=== PATIENT | female | born 1990 | race Caucasian/White ===

== ENCOUNTER 2016-09-29 14:42 | Emergency (ER) | payer OTHER, MEDICAID ==
[~2016-09-29] VITALS: Ht 162.6 cm; Wt 54.4 kg
[~2016-09-29 14:42] MED LIST: BENTYL10 MG ORAL; CIPROFLOXACIN500 M2 ORAL; METROGEL-VAGINA70 G1 VAGIN; NKM; ZANTAC150 MG ORAL; ZOFRAN ODT4 MG ORAL
[2016-09-29 17:20] LABS: APPEARANCE,URINE CLEAR; KETONES,URINE NEGATIVE (NEGATIVE); LEUKOCYTE ESTERASE ,URINE 1+ (NEGATIVE); NITRITE,URINE NEGATIVE (NEGATIVE); PH,URINE 6.5 (4.5-8.0); PROTEIN,URINE NEGATIVE (NEGATIVE); UROBILINOGEN,URINE NORMAL MG/DL (0.0-1.0)
[2016-09-29 17:28] LABS: RBC,URINE 0-2 /HPF (0 - 2); SQUAMOUS EPITHELIAL CELL,UR OCCASIONAL /LPF (NONE/OCC); WBC,URINE 0 /HPF (0 - 2)
[2016-09-29 18:57] VITALS: BP 120/85
[2016-09-29] MEDS ORDERED: LORazepam 0.5mg tab ORAL ONE (19:00)
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
--- NOTE | 2016-09-30 13:21 | Diagnostic Imaging Report ---
Indication: PAIN Technique: One view of the pelvis Comparison: None Findings: No acute fractures. No dislocations. Joint spaces are preserved Impression: Negative
== END 2016-09-29 18:57 | disposition home or self-care (01) ==
LOC: EMR 15:45
DX: Z04.8 Encounter for examination and observation for other specified reasons (principal); F20.9 Schizophrenia, unspecified; F43.10 Post-traumatic stress disorder, unspecified
CPT/HCPCS: 72170; 81003; 81025; 99283

== ENCOUNTER 2017-08-11 13:06 | Emergency (ER) | payer MEDICAID, OTHER ==
[~2017-08-11] VITALS: Ht 165.1 cm; Wt 49.9 kg
[2017-08-11 13:30] VITALS: BP 102/74
--- NOTE | 2017-08-11 14:26 | Emergency Room Report ---
History of Present Illness General Chief Complaint: General Complaint Source: Patient Present Illness Allergies: Coded Allergies: NO KNOWN ALLERGIES (Unverified Allergy, Unknown, 07/13/15) Patient History Last Menstrual Period: 08/06/17. Now: No Nursing Documentation-PMH Hx Seizures: Yes Physical Exam Vital Signs Date Time Temp Pulse Resp B/P (MAP) Pulse Ox O2 Delivery O2 Flow Rate FiO2 08/11/17 13:19 98.1 102 21 102/74 96 Room Air Medical Decision Making PA Attestation Dr. mcdaniels is my supervising Physician whom patient management has been discussed with. Diagnostic Impression: Primary Impression: Bacterial vaginosis Additional Impressions: Head lice Hemorrhoids Qualified Codes: K64.9 - Unspecified hemorrhoids Last Vital Signs Date Time Temp Pulse Resp B/P (MAP) Pulse Ox O2 Delivery O2 Flow Rate FiO2 08/11/17 13:19 98.1 102 21 102/74 96 Room Air Disposition: HOME, SELF-CARE Condition: Stable Patient Instructions: Bacterial Vaginosis, Bhot-[id number], Lice, Adult Additional Instructions: Take medications as directed. Follow up with a Primary Care Provider in 3-5 days, even if your symptoms have resolved. --Please review list of primary care clinics, if you do not already have a primary care provider Return sooner to ED if new symptoms occur, or current symptoms become worse. ! Do not drink alcohol while taking Flagyl/Metronidazole as this will cause a skin reaction. - Please note that this Emergency Department Report was dictated using [employer] assistant technology software, occasionally this can lead to erroneous entry secondary to interpretation by the dictation equipment. Yessenia Giron Aug 11, 2017 14:26
[2017-08-11 15:04] LABS: APPEARANCE,URINE CLEAR; KETONES,URINE 1+ (NEGATIVE); LEUKOCYTE ESTERASE ,URINE 2+ (NEGATIVE); NITRITE,URINE NEGATIVE (NEGATIVE); PH,URINE 6 (4.5-8.0); PROTEIN,URINE 2+ (NEGATIVE); UROBILINOGEN,URINE 4 MG/DL (0.0-1.0)
[2017-08-11 15:20] LABS: BACTERIA,URINE FEW /HPF; MUCUS,URINE FEW /LPF (NONE/OCC); SQUAMOUS EPITHELIAL CELL,UR FEW /LPF (NONE/OCC)
[2017-08-11 15:26] LABS: ICTOTEST NEGATIVE
[2017-08-11] MEDS ORDERED: NIX COMPLET324.86 ML MC (15:31)
[2017-08-11] MEDS ORDERED: ANUSOL-HC30 GM RC (15:31)
[2017-08-11] MEDS ORDERED: METRONIDAZOLE500 MG ORAL (15:31)
[2017-08-11 15:48] VITALS: BP 108/66
== END 2017-08-11 15:50 | disposition home or self-care (01) ==
LOC: EMR 14:25
DX: N76.0 Acute vaginitis (principal); B85.0 Pediculosis due to Pediculus humanus capitis; K64.9 Unspecified hemorrhoids
CPT/HCPCS: 80307; 81003; 81025; 99284

== ENCOUNTER 2018-01-02 07:53 | Emergency (ER) | payer MEDICAID ==
[~2018-01-02] VITALS: Ht 162.6 cm; Wt 49.9 kg
[~2018-01-02 07:53] MED LIST changes: +ANUSOL-HC30 GM RC; +METRONIDAZOLE500 MG ORAL; +NIX COMPLET324.86 ML MC
[2018-01-02 08:08] VITALS: BP 111/61
[2018-01-02] MEDS ORDERED: ZOFRAN4 M1 ORAL (08:50)
[2018-01-02] MEDS ORDERED: METROGEL-VAGINA70 G1 VAGIN (08:50)
[2018-01-02] MEDS ORDERED: GENTAMICIN SUL3.5 GM OP (08:50)
--- NOTE | 2018-01-02 08:53 | Emergency Room Report ---
History of Present Illness General Chief Complaint: Female Urogenital Problems Source: Patient Present Illness HPI Patient presents with several different complaints Initial complaint was redness to the left lower eyelid Patient reports that that has been there for several days [place] some increased irritation Patient also reported that she was having vaginal discharge foul smelling Denies being sexually active Denies any pelvic pain Denies any chest pain or shortness of breath denies any rash However she also reported having some epigastric discomfort and nausea Denies any vomiting and eyes any lower abdominal pain Allergies: Coded Allergies: NO KNOWN ALLERGIES (Unverified Allergy, Unknown, 07/13/15) Patient History Past Medical History: see triage record Pertinent Family History: none Last Menstrual Period: 12/17/17 Now: No Reviewed Nursing Documentation: PMH: Agreed; PSxH: Agreed Nursing Documentation-PMH Past Medical History: No History, Except For Hx Seizures: Yes Review of Systems All Other Systems: negative except mentioned in HPI Physical Exam Vital Signs Date Time Temp Pulse Resp B/P (MAP) Pulse Ox O2 Delivery O2 Flow Rate FiO2 01/02/18 07:59 99.3 80 18 101/58 95 Room Air 99.3 Sp02 EP Interpretation: reviewed, normal General Appearance: well appearing, no apparent distress Head: normocephalic, atraumatic Eyes: left eye other - Stye noted in the left lower eyelid medially; bilateral eye PERRL, bilateral eye EOMI ENT: hearing grossly normal, normal pharynx, TMs + canals normal, uvula midline Neck: full range of motion, supple, no meningismus, no bony tend Respiratory: lungs clear, normal breath sounds, no rhonchi, no respiratory distress, no retraction, no accessory muscle use Cardiovascular #1: normal peripheral pulses, regular rate, rhythm, no edema, no gallop, no JVD, no murmur Gastrointestinal: normal bowel sounds, non tender, soft, no mass, no organomegaly, non-distended, no guarding, no hernia, no pulsatile mass, no rebound Genitourinary: no CVA tenderness, other - Patient does not want to have pelvic exam Musculoskeletal: normal inspection Neurologic: oriented x3, responsive, offensive coordinator III-XII nml as tested, motor strength/ tone normal, sensory intact Psychiatric: mood/affect normal Skin: normal color, no rash, warm/dry, palpation normal Lymphatic: normal inspection, no adenopathy Medical Decision Making Diagnostic Impression: Primary Impression: sty Additional Impression: vaginosis ER Course Multiple differentials are considered Patient's eye exam shows findings consistent with sty patient's mid abdominal discomfort is fairly vague soft abdomen is noted on the exam patient's vaginal discharge is treated symptomatically And patient reports that she has close gynecology outpatient follow-up given the lack of any sexual activity further antibiotic coverage was not provided Patient did have a negative test Labs Test 01/02/18 08:10 Urine HCG, Qualitative Negative (NEGATIVE) Last Vital Signs Date Time Temp Pulse Resp B/P (MAP) Pulse Ox O2 Delivery O2 Flow Rate FiO2 01/02/18 08:08 99.1 78 18 111/61 98 Room Air 99.1 Status: unchanged Disposition: HOME, SELF-CARE Condition: Stable Scripts Gentamicin Sulfate* (GENTAMICIN SULFATE*) 3.5 Gm Oint...g. 1 INCH OP BID for 7 Days, GM Prov: Anatoliy Kirkpatrick DO 01/02/18 Ondansetron (Zofran) 4 Mg Tablet 4 MG ORAL Q6H PRN for Nausea & Vomiting, #10 TAB Prov: Anatoliy Kirkpatrick DO 01/02/18 Metronidazole* (METROGEL-VAGINAL*) 70 Gm Gel.w.appl 1 APPL VAGIN EVERY 12 HOURS for 7 Days, #70 GM Prov: Anatoliy Kirkpatrick DO 01/02/18 Referrals: [facility]ERR[facility] (PCP) Patient Instructions: Mely, Vaginitis Additional Instructions: Patient is provided with the discharge instructions notified to follow up with primary doctor in the next 2-3 days otherwise return to the er with any worsening symptoms. Please note that this report is being documented using Net[employer] technology. This can lead to erroneous entry secondary to incorrect interpretation by the dictating instrument. Anatoliy Kirkpatrick DO January 02, 2018 08:53
[2018-01-02 08:59] VITALS: BP 111/61
== END 2018-01-02 08:59 | disposition home or self-care (01) ==
LOC: EMR 08:14
DX: H00.025 Hordeolum internum left lower eyelid (principal); N76.0 Acute vaginitis
CPT/HCPCS: 81025; 99284

== ENCOUNTER 2018-12-26 03:52 | Emergency (ER) | payer MEDICAID ==
[~2018-12-26] VITALS: Ht 162.6 cm; Wt 45.8 kg
[~2018-12-26 03:52] MED LIST changes: +GENTAMICIN SUL3.5 GM OP; +ZOFRAN4 M1 ORAL
[2018-12-26] MEDS ORDERED: GEODON60 MG PO (03:59)
[2018-12-26 04:20] VITALS: BP 104/86
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
[2018-12-26 04:32] LABS: BASOPHILS % (AUTO) 1.5 % (0.0-2.0); EOSINOPHILS % (AUTO) 4.5 % (0.0-3.0); HEMATOCRIT 41.7 % (37.0-47.0); HEMOGLOBIN 14.2 G/DL (12.0-16.0); LYMPHOCYTES % (AUTO) 34.8 % (20.0-45.0); MEAN CORPUSCULAR VOLUME 88 FL (80-99); MONOCYTES % (AUTO) 10.5 % (1.0-10.0); NEUTROPHILS % (AUTO) 48.8 % (45.0-75.0); PLATELET COUNT 209 K/UL (150-450); RED BLOOD COUNT 4.72 M/UL (4.20-5.40); RED CELL DISTRIBUTION WIDTH 10.9 % (11.6-14.8); WHITE BLOOD COUNT 6.9 K/UL (4.8-10.8)
[2018-12-26 04:33] LABS: APPEARANCE,URINE CLEAR; BILIRUBIN, URINE NEGATIVE (NEGATIVE); COLOR,URINE YELLOW; GLUCOSE, URINE (UA) NEGATIVE (NEGATIVE); KETONES,URINE 1+ (NEGATIVE); LEUKOCYTE ESTERASE ,URINE 1+ (NEGATIVE); NITRITE,URINE NEGATIVE (NEGATIVE); PH,URINE 6 (4.5-8.0); PROTEIN,URINE NEGATIVE (NEGATIVE); UROBILINOGEN,URINE 1 MG/DL (0.0-1.0)
[2018-12-26 04:44] LABS: ANION GAP 8 mmol/L (5-15); BLOOD UREA NITROGEN 4 mg/dL (7-18); CALCIUM 8.7 MG/DL (8.5-10.1); CARBON DIOXIDE 26 MMOL/L (21-32); CHLORIDE 107 MMOL/L (98-107); CREATININE 0.7 MG/DL (0.55-1.30); POTASSIUM 3.7 MMOL/L (3.5-5.1); SODIUM 141 MMOL/L (136-145)
[2018-12-26 04:48] LABS: ALANINE AMINOTRANSFERASE 22 U/L (12-78); ALBUMIN 3.7 G/DL (3.4-5.0); ALBUMIN/GLOBULIN RATIO 1.1 (1.0-2.7); ALKALINE PHOSPHATASE 65 U/L (46-116); ASPARTATE AMINO TRANSFERASE 16 U/L (15-37); BILIRUBIN,TOTAL 0.4 MG/DL (0.2-1.0)
--- NOTE | 2018-12-26 05:00 | NUR ---
ER Nurse Note: Pt belongings list competed. Pt refused male RN to take belongings to locker. Pt is in a hospital gown. Will try to put belongings in locker. Juice and sandwich given. All safety measures met; will continue to [facility].
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
--- NOTE | 2018-12-26 07:13 | NUR ---
ER Nurse Note: Report given to TONI Molina for continuity of care. Pt a&ox4, VSS, no signs of distress.
--- NOTE | 2018-12-26 07:15 | NUR ---
ED Nurse Note: Received patient in bed from Ketty Regalado RN. Patient is stable in bed, eating breakfast. Mother, Cornelia Rojas was called at [phone] Mother is ok for the patient to go back home, mother will call back when she can come to pick her up. Dr. Gipson notified.
[2018-12-26 07:39] VITALS: BP 103/89
[2018-12-26] MEDS ORDERED: GEODON80 MG PO (09:36)
--- NOTE | 2018-12-26 09:38 | NUR ---
ED Nurse Note: called Concepcionchadd Mckeon and verified GEODON dosage with [facility], per pharmacist, she takes GEODON 80mg BID. notified Dr. Gipson.
[2018-12-26 09:40] VITALS: BP 103/89
--- NOTE | 2018-12-26 09:41 | NUR ---
ER DISCHARGE NOTE: Patient is cleared to be discharged per ERMD, pt is aox4, on room air, with stable vital signs. pt was given dc and prescription instructions, pt was able to verbalize understanding, pt id band and iv site was removed during prior shift without complications. pt is able to ambulate with steady gait. pt took all belongings. patient's mother was updated that she is going back home by bus, which is fine with the mother, mother could not come and pick her up. patient was waiting for the mother to come since 714. bus token was provided to the patient.
== END 2018-12-26 09:43 | disposition home or self-care (01) ==
LOC: EDBD 03:52 → EMR 04:13
DX: F60.9 Personality disorder, unspecified (principal); F20.9 Schizophrenia, unspecified; G40.909 Epilepsy, unspecified, not intractable, without status epilepticus
CPT/HCPCS: 36415; 80053; 80307; 80329; 81003; 81025; 85025; 99284

== ENCOUNTER 2019-05-20 12:01 | Emergency (ER) | payer MEDICAID ==
[~2019-05-20] VITALS: Ht 162.6 cm; Wt 49.9 kg
[2019-05-20 12:01] VITALS: BP 123/70
[~2019-05-20 12:01] MED LIST changes: +GEODON60 MG PO; +GEODON80 MG PO
--- NOTE | 2019-05-20 13:14 | NUR ---
ED Nurse Note: Urine and blood was drawn and sent down to the lab.
[2019-05-20 13:27] LABS: HEMATOCRIT 39.3 % (37.0-47.0); HEMOGLOBIN 13.4 G/DL (12.0-16.0); MEAN CORPUSCULAR VOLUME 89 FL (80-99); PLATELET COUNT 245 K/UL (150-450); RED BLOOD COUNT 4.41 M/UL (4.20-5.40); RED CELL DISTRIBUTION WIDTH 10.7 % (11.6-14.8); WHITE BLOOD COUNT 12.8 K/UL (4.8-10.8)
[2019-05-20 13:28] LABS: APPEARANCE,URINE CLEAR; BILIRUBIN, URINE NEGATIVE (NEGATIVE); COLOR,URINE PALE YELLOW; GLUCOSE, URINE (UA) NEGATIVE (NEGATIVE); KETONES,URINE 3+ (NEGATIVE); LEUKOCYTE ESTERASE ,URINE NEGATIVE (NEGATIVE); NITRITE,URINE NEGATIVE (NEGATIVE); PH,URINE 6 (4.5-8.0); PROTEIN,URINE 1+ (NEGATIVE); UROBILINOGEN,URINE NORMAL MG/DL (0.0-1.0)
[2019-05-20] MEDS ORDERED: DiphenhydrAMINE 50mg/ml Inj IVP ONE (13:30)
[2019-05-20] MEDS ORDERED: Haloperidol 5mg/ml Inj IM ONE (13:30)
[2019-05-20 13:52] LABS: ANION GAP 12 mmol/L (5-15); BLOOD UREA NITROGEN 5 mg/dL (7-18); CALCIUM 8.9 MG/DL (8.5-10.1); CARBON DIOXIDE 22 MMOL/L (21-32); CHLORIDE 107 MMOL/L (98-107); CREATININE 0.9 MG/DL (0.55-1.30); POTASSIUM 3.3 MMOL/L (3.5-5.1); SODIUM 141 MMOL/L (136-145)
[2019-05-20 13:58] LABS: ALANINE AMINOTRANSFERASE 17 U/L (12-78); ALBUMIN 4.3 G/DL (3.4-5.0); ALBUMIN/GLOBULIN RATIO 1.3 (1.0-2.7); ALKALINE PHOSPHATASE 53 U/L (46-116); ASPARTATE AMINO TRANSFERASE 25 U/L (15-37); BILIRUBIN,TOTAL 0.6 MG/DL (0.2-1.0); CREATINE KINASE 530 U/L (26-308)
[2019-05-20 14:52] VITALS: BP 120/70
--- NOTE | 2019-05-20 15:00 | NUR ---
ED Nurse Note: Pt came in via [address] [employer] [address] . pt was running around in traffic and repeating [address] . [employer] at bedside Officer [id number] [place] . Pt placed on hold by [employer]. ppt unable to answer questions or provide her information.
--- NOTE | 2019-05-20 17:00 | NUR ---
ED Nurse Note: pt more awake alert answering questions and provided her name and personal information . pt's belongings in locker #2. Pt denies SI and HI.
[2019-05-20 17:30] VITALS: BP 125/74
--- NOTE | 2019-05-20 19:07 | NUR ---
HAND-OFF: Report given to Patsy MUÑOZ.
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
[2019-05-20 19:35] VITALS: BP 119/68
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
--- NOTE | 2019-05-20 20:35 | NUR ---
ED Nurse Note: PT IN BED SLEEPING, NO CHANGES OR INCREASED DISTRESS, V/S STABLE, NO SOB OR LABORED BREATHING NOTED, WILL CONRTINUE TO CLOSELY MONITOR.
--- NOTE | 2019-05-20 21:33 | NUR ---
[facility] [phone]
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
[2019-05-20 22:15] VITALS: BP 122/61
[2019-05-20 22:30] VITALS: BP 122/61
== END 2019-05-20 22:30 | disposition home or self-care (01) ==
LOC: EDBD 12:01 → MERGE 12:30 → EDBD 12:30 → EMR 12:30
DX: F15.10 Other stimulant abuse, uncomplicated (principal); F23 Brief psychotic disorder; F20.9 Schizophrenia, unspecified
CPT/HCPCS: 36415; 80053; 80164; 80196; 80307; 80329; 81003; 81025; 82550; 85007; 85025; 86850; 86900; 86901; 96361; 96372; 96374; J1200; J1630; Z7502; 99284

== ENCOUNTER 2020-10-28 08:20 | Emergency (ER) | payer MEDICAID ==
[~2020-10-28] VITALS: Ht 162.6 cm; Wt 54.4 kg
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
[2020-10-28] MEDS ORDERED: Tetanus/Diptheria/Pertussis IM ONE (09:30)
[2020-10-28] MEDS ORDERED: Lidocaine 1% Plain 30 ml INJ ONE (09:30)
[2020-10-28] MEDS ORDERED: Bacitracin Oint UD TOPIC ONE (10:00)
[2020-10-28] MEDS ORDERED: BACITRACIN15 GM TOPIC (10:00)
[2020-10-28] MEDS ORDERED: CEPHALEXIN500 MG ORAL (10:00)
[2020-10-28 10:19] VITALS: BP 118/78
--- NOTE | 2020-10-28 10:20 | NUR ---
ER DISCHARGE NOTE: Patient is cleared to be discharged per ERMD, pt is aox4, on room air, with stable vital signs. pt was given dc instructions, pt was able to verbalize understanding, pt id band removed. pt is able to ambulate with steady gait. pt took all belongings.
--- NOTE | 2020-10-28 10:21 | NUR ---
pt R hand dressed with bacitracin, wrapped with gauze. dressing clean, dry, intact. pt verbalizes wound care instructions.
== END 2020-10-28 10:04 | disposition home or self-care (01) ==
LOC: EDBD 08:20 → EMR 09:20
DX: S61.411A Laceration without foreign body of right hand, initial encounter (principal); X99.1XXA Assault by knife, initial encounter; Y92.9 Unspecified place or not applicable; F84.0 Autistic disorder; F20.9 Schizophrenia, unspecified; Z23 Encounter for immunization
CPT/HCPCS: 90471; 90715; Z7502; 99282